=== PATIENT | male | born 1970 | race Caucasian/White ===

== ENCOUNTER 2016-10-07 16:15 | Emergency (ER) | payer SELFPAY ==
[~2016-10-07] VITALS: Ht 175.3 cm; Wt 84.0 kg
[2016-10-07 18:40] VITALS: BP 121/84
== END 2016-10-07 18:42 | disposition home or self-care (01) ==
LOC: ED 16:15
DX: S13.4XXA Sprain of ligaments of cervical spine, initial encounter (principal); S43.492A Other sprain of left shoulder joint, initial encounter; F17.210 Nicotine dependence, cigarettes, uncomplicated; V89.2XXA Person injured in unspecified motor-vehicle accident, traffic, initial encounter; Y93.89 Activity, other specified; Y92.488 Other paved roadways as the place of occurrence of the external cause; Y99.8 Other external cause status